=== PATIENT | male | born 1995 | race American Indian/Alaskan Native ===

== ENCOUNTER 2022-11-11 12:57 | Inpatient (IN) | payer OTHER, SELFPAY ==
[2022-11-11] VITALS (31 sets, daily range): BP systolic 107–134; BP diastolic 74–92; PULSE 65–104; RESP 11–32; TEMP 36.6–37.3; O2SAT 91–100; BMI 15.7
--- NOTE | ~2022-11-11 | XR_ITS ---
Clinical Indication: Pneumothorax PA and lateral views of the chest: Comparison: 11/13/2022 Findings: The lungs are clear, without evidence of focal consolidation or pleural effusion. Cardiome diastinal silhouette is within normal limits. Bones and soft tissues are unremarkable. Impression: No definite pneumothorax seen. Clear lungs. Reviewed, dictated and finalized at location . Impression: No definite pneumothorax seen. Clear lungs.
--- NOTE | ~2022-11-11 | XR_ITS ---
Portable chest x-ray Comparison: 11/11/2022 Clinical History: Right-sided chest pain Findings: Right-sided chest tube is in place. No definite pneumothorax identified. Lungs are clear. Cardiomediastinal silhouette is stable. Bones and soft tissues are unremarkable. Impression: Right-sided chest without definite pneumothorax. Clear lungs. Reviewed, dictated and finalized at location . Impression: Right-sided chest without definite pneumothorax. Clear lungs.
--- NOTE | ~2022-11-11 | XR_ITS ---
XR chest 2V 11/11/2022 14:49 Indication: Right-sided chest pain Procedure: 2 view chest Comparison: No prior studies for comparison. Findings: There is a moderate-large right pneumothorax. Heart size normal. No significant effusion. N o focal airspace consolidation. Impression: 1: Moderate-large right pleural effusion. Dr. Jeevan Huntley discussed with Dr. Dolores Tran PA-C at 11/11/2022 14:51 CDT. Reviewed, dictated and finalized at location A. Impression: 1: Moderate-large right pleural effusion. Dr. Jeevan Huntley discussed with Dr. Dolores Tran PA-C at 11/11/2022 14:5 1 CDT.
--- NOTE | ~2022-11-11 | XR_ITS ---
EXAMINATION: XR chest 1V portable Exam Date/Time: 11/11/2022 17:45 CDT HISTORY: chest tube placement Comparison: None available. RESULT: Lines, tubes, and devices: Right chest tube terminating in the right apex. Lungs and pleura: Clear. No pneumothorax currently seen. Cardiomediastinal silhouette: Stable. Other: No acute osseous or upper abdominal finding. IMPRESSION: Right chest tube, in good position. Improved/resolved right pneumothorax. Reviewed, dictated and finalized at location K.
--- NOTE | ~2022-11-11 | XR_ITS ---
Portable chest x-ray Comparison: 11/13/2022 at 5:20 AM Clinical History: Chest tube removal Findings: Right-sided chest tube has been removed. Suspected tiny right apical pneumothorax. Lungs a re otherwise clear. Cardiomediastinal silhouette is stable. Bones and soft tissues are unremarkable. Impression: Probable tiny right apical pneumothorax following chest tube removal. Reviewed, dictated and finalized at location . Impression: Probable tiny right apical pneumothorax following chest tube removal.
--- NOTE | ~2022-11-11 | XR_ITS ---
Portable chest x-ray Comparison: 11/12/2022 Clinical History: Right pneumothorax Findings: Right-sided chest tube has been removed. Minimal right pneumothorax present. Lungs are oth erwise clear. Cardiomediastinal silhouette is stable. Bones and soft tissues are unremarkable. Impression: Minimal right pneumothorax following right chest tube removal. Reviewed, dictated and finalized at location . Impression: Minimal right pneumothorax following right chest tube removal.
--- NOTE | 2022-11-11 14:52 | ED.URI ---
HPI - URI/Sore Throat General Chief Complaint: Upper Respiratory Infection <Dolores Tran PA-C - Last Filed: 11/11/22 18:05> Stated Complaint: Pneumonia <KEIRA Wyatt Last Filed: 11/11/22 18:05> Time Seen by Provider: 11/11/22 14:30 <Dolores Tran PA-C - Last Filed: 11/11/22 18:05> History of Present Illness HPI Narrative: 27-year-old male here for evaluation of right-sided chest pain over the past day. Patient states that he woke up with the discomfort, it is located around his right rib cage. He has had no shortness of breath, cough. He has not attempted any medicine for the pain. He has had no fevers, chills, sinus congestion. No history of trauma to the chest. <KEIRA Wyatt Last Filed: 11/11/22 18:05> Related Data Allergies/Adverse Reactions: Allergies Allergy/AdvReac Type Severity Reaction Status Date / Time No Known Allergies Allergy Verified 11/11/22 14:22 <KEIRA Wyatt Last Filed: 11/11/22 18:05> Review of Systems Review of Systems: Gen.: Denies fevers or chills Eyes: Denies eye pain or visual change ENT: Denies congestion Respiratory: Denies shortness of breath or cough CV: Reports right-sided chest pain GI: Denies abdominal pain nausea, emesis or diarrhea denies burning, urgency, frequency or hematuria Musculoskeletal: Denies back pain or muscle pain Neuro: Denies numbness, tingling, weakness or focal weakness Skin: Denies rash Except as documented, all other systems reviewed and negative <KEIAR Wyatt Last Filed: 11/11/22 18:05> Exam Narrative: APPEARANCE: Well appearing, no pain in distress, well-nourished. Head: Normocephalic and atraumatic. EYES: PERRLA/EOMI, conjunctivae clear NOSE: No nasal drainage EARS: External ear normal in appearance THROAT: Oropharynx is clear. Mucous membranes are moist. NECK: Supple. No adenopathy, no masses. RESPIRATORY: Airway patent, respirations nonlabored. Clear to auscultation bilaterally, no rales, rhonchi, wheezing. CARDIOVASCULAR: Regular rate and rhythm without murmurs, rubs, or gallops. ABDOMINAL: Normoactive bowel sounds. Soft, nontender, nondistended. No rebound tenderness or guarding. MUSCULOSKELETAL: Extremities are warm and well-perfused. Moves all extremities well. No edema. NEURO: Normal speech. No focal neurologic deficits. SKIN: Skin is warm and dry. No rashes. PSYCHIATRIC: Normal affect/mood.. <Dolores Tran PA-C - Last Filed: 11/11/22 18:05> Course ARM MAKER/PA Physician Supervision This visit was performed by both a physician and an APC. I performed all aspects of the MDM as documented. Pneumothorax requiring chest tube placement which I placed personally. No complications, adequate lung expansion, normal oxygenation. Patient has no dyspnea or pain afterwards. He received Versed 2 mg as well as fentanyl 25 mcg. General surgery admitting the patient. <Kody Santana MD - Last Filed: 11/11/22 17:54> Vital Signs Vital signs: Vital Signs Temperature 97.8 F 11/11/22 12:58 Pulse Rate 85 11/11/22 12:58 Respiratory Rate 16 11/11/22 12:58 Blood Pressure 119/83 11/11/22 12:58 Pulse Oximetry 100 11/11/22 12:58 Oxygen Delivery Room Air 11/11/22 12:58 Temperature 99.1 F 11/11/22 15:48 Pulse Rate 76 11/11/22 17:40 Respiratory Rate 16 11/11/22 17:40 Blood Pressure 122/92 H 11/11/22 17:00 Pulse Oximetry 100 11/11/22 17:40 Oxygen Delivery Nasal Cannula 11/11/22 15:29 Oxygen Flow Rate 2 11/11/22 15:29 <Dolores Tran PA-C - Last Filed: 11/11/22 18:05> Vital Signs Temperature 97.8 F 11/11/22 12:58 Pulse Rate 85 11/11/22 12:58 Respiratory Rate 16 11/11/22 12:58 Blood Pressure 119/83 11/11/22 12:58 Pulse Oximetry 100 11/11/22 12:58 Oxygen Delivery Room Air 11/11/22 12:58 Temperature 99.1 F 11/11/22 15:48 Pulse Rate 76 11/11/22 17:
[2022-11-11 14:55] LABS: Influenza A QL RT-PCR Negative (Negative); Influenza B QL RT-PCR Negative (Negative); SARS-CoV-2 RNA PCR Negative
--- NOTE | 2022-11-11 15:03 | ECG_ITS ---
Measurements Intervals [place] Rate: 64 P: 78 AL: 123 QRS: 73 QRSD: 101 T: 76 QT: 398 QTc: 411 Interpretive Statements SINUS RHYTHM INCOMPLETE RIGHT BUNDLE BRANCH BLOCK ST ELEVATION IN ANTEROLAT/INF LEADS, PROBABLY EARLY REPOLARIZATION MINIMAL Q WAVES- LATERAL LEADS BORDERLINE ECG NO PREVIOUS ECG AVAILABLE FOR COMPARISON Electronically Signed On 11-11-2022 16:33:20 CDT by Jose Abdul D.O.
--- NOTE | 2022-11-11 15:29 | PC.NURSE ---
Report given to SEAN Khanna at this time.
[2022-11-11 16:06] LABS: Basophils Percent Auto 0.5 % (0.2-1.2); Eosinophils Percent Auto 0.5 % (0-4.4); Hematocrit 45.7 % (42.0-52.0); Hemoglobin 14.8 g/dL (14.0-18.0); Immature Granulocyte Absolute 0.02 K/mm3 (0.00-0.031); Immature Granulocyte Percent A 0.3 % (0-0.5); Lymphocytes Absolute Auto 1.38 K/mm3 (0.9-3.2); Lymphocytes Percent Auto 22.7 % (18.3-44.2); Mean Corpuscular HGB Conc 32.4 g/dl (32-36); Mean Corpuscular Hemoglobin 27.5 pg (26-34); Mean Corpuscular Volume 84.8 fl (80-100); Mean Platelet Volume 10.1 fl (7.4-10.4); Monocytes Absolute Auto 0.4 K/mm3 (0.1-0.6); Monocytes Percent Auto 6.4 % (2.6-8.5); Neutrophils Absolute Auto 4.2 K/mm3 (1.3-6.7); Neutrophils Percent Auto 69.6 % (45.5-73.1); Platelet Count Result 281 k/mm3 (150-375); Red Blood Count 5.39 M/mm3 (4.6-6.20); Red Cell Distribution Width 13.1 % (11.5-14.5); White Blood Count 6.1 K/mm3 (4.5-10.0)
[2022-11-11 16:17] LABS: Alanine Aminotransferase 20 U/L (6-50); Albumin Level 4.9 g/dL (3.5-5.1); Alkaline Phosphatase 71 U/L (38-126); Anion Gap 7 mmol/L (8-16); Aspartate Amino Transferase 29 U/L (17-59); Bilirubin,Total 0.5 mg/dL (0.2-1.3); Blood Urea Nitrogen 9 mg/dL (9-20); Calcium 9.8 mg/dL (8.4-10.2); Carbon Dioxide 29 mmol/L (22-30); Chloride 103 mmol/L (98-107); Estimated CRCL calculation 125 ml/min; Estimated Glomerular Filt Rate > 60; Glucose 92 mg/dL (65-110); Potassium 4.1 mmol/L (3.4-5.0); Sodium 139 mmol/L (137-145)
[2022-11-11] MEDS: fentaNYL CITRATE INJ (*CRX) 100 MCG/2 ML VIAL 25 MCG IV PUSH (17:14)
--- NOTE | 2022-11-11 17:16 | PC.NURSE ---
and PA at bedside for procedure
--- NOTE | 2022-11-11 17:20 | PC.NURSE ---
Verbal consent obtained earlier by MD. Signed consent completed at bedside.
[2022-11-11] MEDS: MIDAZOLAM HCL (*CRX) 2 MG/2 ML VIAL IV PUSH (17:30)
--- NOTE | 2022-11-11 17:31 | PC.NURSE ---
2 versed administered at 1730
[2022-11-11] MEDS: MORPHINE SULFATE (*CRX) 4 MG/ML INJ IV PUSH ×2 (18:44→22:22)
--- NOTE | 2022-11-11 18:55 | PC.NURSE ---
Report called to Julianne on Med/Surg
--- NOTE | 2022-11-11 19:42 | ADMGEN ---
This patient, Elana Serrano, was admitted to Medical Room 259-01. Patient/family oriented to hospital policies and general routines including ID bracelet, bed and alarms, visiting hours, pain management, procedures, bathroom and other care routines, personal items, smoking policy, room service/diet, and visiting hours. Information on how to activate the Rapid Response Team has been discussed. Patient/Family are encouraged to report perceived risks to care and to ask questions if they do not understand what they are told or what they should do.
[2022-11-11] MEDS: HYDROcodone/acetaminophen (*CRX) 5-325 MG TABLET 1 TAB PO (19:55)
[2022-11-12] MEDS: MORPHINE SULFATE (*CRX) 4 MG/ML INJ IV PUSH ×2 (03:12→06:13)
[2022-11-12 04:06] VITALS: BP 104/70; PULSE 69; RESP 18; TEMP 36.5; O2SAT 100
[2022-11-12] MEDS: HYDROcodone/acetaminophen (*CRX) 5-325 MG TABLET 1 TAB PO ×4 (04:22→21:32)
[2022-11-12 08:00] VITALS: O2SAT 99
--- NOTE | 2022-11-12 11:19 | PM.IMHP ---
H&P: HPI History of Present Illness Date/Time: 11/12/22 11:19 Chief Complaint: Right-sided chest pain Narrative: This is a 27-year-old otherwise healthy male who presented to the ER yesterday with complaints of right-sided chest pain. He reportedly woke up with a mild burning chest discomfort yesterday morning. He denies shortness of breath, cough, recent respiratory infection, or any other associated symptoms. He denies ever having this pain in the past and decided to come into the ER for evaluation. Chest x-ray in the ER showed a moderate to large right pneumothorax. Vital signs were stable. Labs were unremarkable. A right-sided chest tube was placed by the ER provider. Postplacement chest x-ray showed nearly full expansion of the right lung with the chest tube in good position. Our service was contacted and he was admitted in this setting. The patient is now seen on the medical floor this morning. His chest tube has been on water seal overnight. He reports the right-sided chest discomfort has improved since yesterday and now he primarily has pain at the chest tube insertion site. He denies a history of a pneumothorax. He does report smoking marijuana daily, frequently. He denies recent trauma to the chest or any recent falls. Review of Systems Review of Systems: All systems reviewed & are unremarkable except as noted in HPI and below PMFSH Past Medical History Medical History No pertinent past medical history Surgical History Surgical History No significant past surgical history Family History Family History Father Hypertension Mother Hypertension Social History Social History Smoking status: Never smoker Alcohol intake: never Substance use: current Substance use type: marijuana Lack of Transportation: No Lack of Food: Never True Current Housing: I Have Housing Concerned About Future Housing: No Difficulty Paying Gas/Electric Bills: No Difficulty Paying for Meds: No Currently Unemployed: No Education: Associate Degree Difficulty w/ Childcare or Family Care: No Spiritual care concerns: No Meds Home Medications and Allergies Home Medications Medication Instructions Recorded Confirmed Type No Home Medications 11/11/22 11/11/22 History Allergies Allergy/AdvReac Type Severity Reaction Status Date / Time No Known Allergies Allergy Verified 11/11/22 14:22 Vital Signs Vital Signs - 24 hr 11/11/22 12:58 11/11/22 14:25 11/11/22 15:29 Temperature 97.8 F Pulse Rate 85 77 Respiratory Rate 16 Blood Pressure 119/83 Pulse Oximetry 100 Oxygen Delivery Room Air Room Air Oxygen Flow Rate 11/11/22 15:29 11/11/22 15:45 11/11/22 15:48 Temperature 99.1 F Pulse Rate 67 Respiratory Rate 19 Blood Pressure 120/80 Pulse Oximetry 100 100 Oxygen Delivery Nasal Cannula Oxygen Flow Rate 2 11/11/22 16:06 11/11/22 16:25 11/11/22 16:30 Temperature Pulse Rate 67 78 77 Respiratory Rate 18 11 L 14 Blood Pressure Pulse Oximetry 100 100 91 Oxygen Delivery Oxygen Flow Rate 11/11/22 16:45 11/11/22 17:00 11/11/22 17:34 Temperature Pulse Rate 82 65 104 H Respiratory Rate 15 17 27 H Blood Pressure 122/92 H Pulse Oximetry 100 100 100 Oxygen Delivery Oxygen Flow Rate 11/11/22 17:35 11/11/22 17:37 11/11/22 17:40 Temperature Pulse Rate 97 75 76 Respiratory Rate 32 H 30 H 16 Blood Pressure Pulse Oximetry 100 100 100 Oxygen Delivery Oxygen Flow Rate 11/11/22 17:21 11/11/22 17:37 11/11/22 17:46 Temperature Pulse Rate 79 73 68 Respiratory Rate 17 15 18 Blood Pressure 107/81 Pulse Oximetry 100 100 100 Oxygen Delivery Oxygen Flow Rate 11/11/22 17:47 11/11/22
[2022-11-12 13:36] VITALS: BP 124/81; PULSE 90; RESP 16; TEMP 36.1; O2SAT 100
[2022-11-12 13:52] VITALS: O2SAT 99
[2022-11-12 19:31] VITALS: BP 110/77; PULSE 55; RESP 18; TEMP 36.1; O2SAT 98
[2022-11-12 20:00] VITALS: O2SAT 98
[2022-11-13] MEDS: MORPHINE SULFATE (*CRX) 2 MG/ML INJ IV PUSH (00:32)
--- NOTE | 2022-11-13 02:05 | PC.NURSE ---
PT REFUSING TO MOVE. PT WILL NOT LIFT HIS OWN HEAD OR REACH FOR ANYTHING ON HIS BEDSIDE TABLE OTHER THAN HIS PHONE. PT FREQUENTLY REQUESTING TO BE REPOSITIONED IN BED BUT SCREAMS IN PAIN WHEN YOU MOVE HIM IN THE SLIGHTEST. I RECOMMENDED THE PT STAND AT THE BEDSIDE AND TAKE A FEW SMALL STEPS TOWARDS THE TOP OF THE BED AND SIT DOWN AGAIN TO GET HIGHER IN THE BED RATHER THAN US PULLING HIM UP BUT HE REFUSED STATING I CAN'T . PT IS NOT ATTEMPTING TO MOVE OR DO THINGS FOR HIMSELF THAT HE WILL HAVE TO DO ONCE DISCHARGED. I ENCOURAGED INCENTIVE SPIROMETER USE AND PT AMBULATION TO PROMOTE HEALING.
[2022-11-13] MEDS: MORPHINE SULFATE (*CRX) 4 MG/ML INJ IV PUSH ×2 (02:23→08:53)
[2022-11-13 03:44] VITALS: BP 110/77; PULSE 84; RESP 17; TEMP 36.3; O2SAT 100
[2022-11-13] MEDS: HYDROcodone/acetaminophen (*CRX) 5-325 MG TABLET 1 TAB PO (05:31)
[2022-11-13 08:00] VITALS: O2SAT 100
[2022-11-13 08:55] VITALS: O2SAT 96
--- NOTE | 2022-11-13 10:55 | PM.PNGS ---
Progress Note: A&P Assessment and Plan (1) Pneumothorax: Code(s): J93.9 - Pneumothorax, unspecified Status: Acute Assessment and Plan: Chest x-ray this morning on water seal showed a tiny right pneumothorax, chest tube still in good position. No pleural leak again today. Chest tube was removed. Will repeat a chest x-ray 2 hours after removal. Plan I have discussed the patient's case and plan of care with Dr. Larios. Subjective Subjective Date/Time Seen: 11/13/22 10:00 Patient reports: no new complaints, feels better and pain is less Interval history: Patient seen this morning. Still having some pain at the chest tube insertion site, but his right-sided burn chest pain continues to improve. He denies any shortness of breath or acute issues overnight. He is currently on room air with stable oxygen saturations. No other complaints at this time. No pleural leak noted this morning. Review of Systems Review of Systems: ROS unchanged Exam Const: General: comfortable and no acute distress Nutritional Appearance: thin Orientation/consciousness: patient oriented x3 Chest: Chest palpation & inspection: no crepitus Other: Right lateral chest tube with dressing dry and intact, on water seal, no air leak. Dressing and suture removed, then chest tube was removed while applying an occlusive gauze dressing to the right lateral chest. Patient tolerated this well. Resp: Effort & Inspection: no respiratory distress Auscultation: clear to auscultation bilaterally Cardio: Rate: regular rate Rhythm: regular rhythm Objective Data Vital Signs Vital Signs: Vital Signs - 24 hr 11/12/22 13:36 11/12/22 13:52 11/12/22 19:31 Temperature 96.9 F L 96.9 F L Pulse Rate 90 55 L Respiratory Rate 16 18 Blood Pressure 124/81 110/77 Pulse Oximetry 100 99 98 Oxygen Delivery Nasal Cannula Oxygen Flow Rate 2 Fraction of Inspired Oxygen 28 11/12/22 20:00 11/13/22 03:44 11/13/22 08:00 Temperature 97.4 F L Pulse Rate 84 Respiratory Rate 17 Blood Pressure 110/77 Pulse Oximetry 98 100 100 Oxygen Delivery Nasal Cannula Nasal Cannula Oxygen Flow Rate 2 2 Fraction of Inspired Oxygen 11/13/22 08:55 Temperature Pulse Rate Respiratory Rate Blood Pressure Pulse Oximetry 96 Oxygen Delivery Room Air Oxygen Flow Rate Fraction of Inspired Oxygen 21 Intake/Output Intake/Output: Intake & Output 11/10/22 11/11/22 11/12/22 11/13/22 23:59 23:59 23:59 23:59 Intake Total 1150 240 Output Total 850 200 Balance 300 40 Meds/Results Medications: Active Medications Generic Name Dose Route Start Last Admin Trade Name Freq PRN Reason Stop Dose Admin Hydrocodone Bitart/Acetaminophen 1 tab 11/11/22 17:49 11/13/22 05:31 Hydrocodone/Acetaminophen (*Crx) 5-325 Mg Tablet PO 1 tab Q4H PRN Administration Pain Rated 4-6 Morphine Sulfate 2 mg 11/11/22 22:04 11/13/22 00:32 Morphine Sulfate (*Crx) 2 Mg/Ml Inj IV PUSH 2 mg Q2H PRN Administration Breakthrough Pain Morphine Sulfate 4 mg 11/11/22 22:04 11/13/22 08:53 Morphine Sulfate (*Crx) 4 Mg/Ml Inj IV PUSH 4 mg Q2H PRN Administration Pain Rated 7-10 Ondansetron HCl 4 mg 11/11/22 17:49 Ondansetron Inj 4 Mg/2 Ml Vial IV PUSH Q4H PRN Nausea Radiology Results: ITS Impressions Chest X-Ray 11/13/22 05:58 Impression: Minimal right pneumothorax following right chest tube removal. ADDENDUM: 11/13/22 0721 There is in fact probably a right chest tube present, which is not as well-seen as on the prior exam, but without significant change in position.
[2022-11-13 12:08] VITALS: BMI 15.7
--- NOTE | 2022-11-13 12:52 | P.CDI_ITS ---
CDI Query Clarified Diagnosis Clarified Diagnosis: BMI 15.7 Nutritional Diagnostic Statement Moderate protein calorie malnutrition as related to increased protein needs in the setting of acute disease (pneumothorax) as evidence by significant weight loss of 6% in 1 week ( 8 lbs); mild subcutaneous fat loss (orbital fat pads) and mild muscle wasting (temporalis). Please refer to the Comprehensive Nutrition Assessment for more information. Please clarify severity of protein calorie malnutrition: * Mild * Moderate * Severe * Other/ Unspecified <Almaz Valenzuela RN - Last Filed: 11/13/22 12:59> Provider Comments Patient has moderate protein calorie malnutrition <Mat Larios DO - Last Filed: 11/14/22 11:35>
[2022-11-13 14:00] VITALS: BP 109/70; PULSE 84; RESP 16; TEMP 36.9; O2SAT 100
--- NOTE | 2022-11-13 15:49 | PCCCNOTE ---
On 11/13/22, the student, [Hilda Miller], provided care and completed [facility] documentation on this patient. I have reviewed the student's documentation and agree with the findings.
[2022-11-13] MEDS: IBUPROFEN 600 MG TABLET PO ×2 (17:00→21:17)
--- NOTE | 2022-11-13 19:14 | PHAR ---
PT'S HOME MED ESTRADIOL 2 MG TABS VERIFIED BY PHARMACY
[2022-11-13 22:34] VITALS: BP 114/76; PULSE 95; RESP 16; TEMP 37.1; O2SAT 100
[2022-11-14] MEDS: IBUPROFEN 600 MG TABLET PO (04:23)
[2022-11-14 06:59] VITALS: BP 114/76; PULSE 72; RESP 16; TEMP 36.7; O2SAT 100
[2022-11-14 08:00] VITALS: O2SAT 100
[2022-11-14] MEDS: LIDOCAINE 5% PATCH 1 PATCH TRANSDERM (08:50)
--- NOTE | 2022-11-14 11:35 | PM.DS ---
DS: Admitting Diagnosis Discharge Date 11/14/2022 Admitting Diagnosis right spontaneous pneumothorax DS: Discharge Diagnosis Discharge Diagnosis (1) Pneumothorax: Code(s): J93.9 - Pneumothorax, unspecified Status: Acute (2) Marijuana smoker: Code(s): F12.90 - Cannabis use, unspecified, uncomplicated Status: Acute (3) Moderate protein-calorie malnutrition: Code(s): E44.0 - Moderate protein-calorie malnutrition Status: Acute DS: Summary Hospital Course Reason for hospitalization: right pneumothorax Hospital Course: this is a 27-year-old man who presented to the emergency department with right-sided chest pain. He was hemodynamically stable and had normal oxygen saturation on room air. He had had x-ray which showed evidence of a moderate to large right pneumothorax. Chest tube was placed by the ED physician and he was admitted for further treatment. The follow-up chest x-ray showed complete re-expansion of the lung. The chest tube was monitored with the Pleur-evac to water-seal. There was no evidence of air leak and he remained hemodynamically stable. Most of his complaints were around his pain from the chest tube insertion. Pain control was aided with oral and IV pain medications. On 11/13/2022, the pneumothorax appeared resolved except for a tiny apical pneumothorax. Chest tube was removed and follow-up x-ray showed stable appearance. He was still experiencing a lot of pain at the chest tube site once it was removed, therefore he was kept in the hospital 1 more night. On 11/14 the follow-up chest x-ray showed no pneumothorax and his pain was improving. He was tolerating the pain with just oral ibuprofen. He remained hemodynamically stable. He was discharged on 11/14/2022. Time spent discussing smoking cessation with patient: 3 to 10 minutes Status at Discharge Functional status at discharge: independent ambulation Overall status at discharge: patient is progressing back to baseline Time Spent with Patient Time attestation: Total time spent providing and/or coordinating discharge services: Time spent: Less than 30 minutes Exam Const: General: comfortable, no acute distress and malnourished Resp: Effort & Inspection: normal respiratory effort Auscultation: clear to auscultation bilaterally Cardio: Rate: regular rate Rhythm: regular rhythm Heart sounds: S1 normal heart sound present and S2 normal heart sound present DS: Data Imaging Radiologist's impression: Impressions Chest X-Ray 11/13/22 12:32 Impression: Probable tiny right apical pneumothorax following chest tube removal. Chest X-Ray 11/14/22 10:42 Impression: No definite pneumothorax seen. Clear lungs. Discharge Plan Discharge Attending physician on discharge: Mat Larios Consulting providers: Dolores Tran Discharging Clinician: Mat Larios Patient Disposition: Home, Self-Care Activity: may shower and other - see discharge instructions Diet: regular Wound Care Instructions: other - see discharge instructions Discharge Instructions: Post chest tube removal instructions remove bandage at chest tube site on 11/15 no strenuous activity or lifting greater than 20 lb for the next 2 weeks, then may resume regular activity without restrictions take [id number] ibuprofen or Tylenol as needed for pain return to the emergency department for recurrent chest pain or shortness of breath follow-up with primary care physician for routine care Patient Instructions: Antibiotic Form Stand Alone Forms: General Discharge Information Follow-up/Referrals: Cristopher,Ulises Bocanegra MD [Primary Care Provider] - Follow Up with Primary Dr Discharge Medications: Continued No Home Medications Date of admission: 11/12/22 09:59 Primary Care Provider: CristopherUlises Admitting Provider: Mat Larios Attending physician on admis
--- NOTE | 2022-11-14 12:45 | PCCCNOTE ---
On 11/14/22, the student, [Aurora Miller], provided care and completed [facility] documentation on this patient. I have reviewed the student's documentation and agree with the findings.
[2022-11-14 13:45] VITALS: BP 108/73; PULSE 60; RESP 13; TEMP 36.7; O2SAT 95
== END 2022-11-14 13:59 | disposition home or self-care (01) | DRG 200 ==
LOC: ANHED 15:53 → ANH2MED 18:34
PROVIDERS: General Practice; Admitting Provider Surgery; Emergency Provider Physician Assistant; PCP Family Medicine; Visit Provider Surgery
DX: J93.9 Pneumothorax, unspecified (principal); E44.0 Moderate protein-calorie malnutrition; Z68.1 Body mass index [BMI] 19.9 or less, adult; Z20.822 Contact with and (suspected) exposure to COVID-19; F12.90 Cannabis use, unspecified, uncomplicated
CPT/HCPCS: 32556; 36415; 71045; 71046; 80053; 85025; 87636; 93005; 96374; 96375; 96376; 99285; A9270; C1729; G0378; J2250; J2270; J3010

== ENCOUNTER 2023-11-15 12:42 | Emergency (ER) | payer OTHER, SELFPAY ==
--- NOTE | ~2023-11-15 | CT_ITS ---
EXAMINATION: CT abdomen pelvis w con DATE: 11/15/2023 14:37 INDICATION: abd pain TECHNIQUE: Computed tomography (CT) of the abdomen and pelvis was performed with 100 mL Omnipaque-350 intravenous contrast. Automated exposure control and iterative reconstruction technique were employe d. The dose-length product was 189.37 mGy-cm. COMPARISON: None. FINDINGS: Lower thorax: Unremarkable Liver: Normal. Biliary/Gallbladder: Gallbladder is normal. No bile duct dilation. Pancreas: No mass or duct dilation. Spleen: Normal. Adrenals:No mass. Kidneys: No suspicious mass, obstructing stone, or hydronephrosis. GI tract: Moderate distal esophageal and gastric wall edema. No small or large bowel dilation. Append ix not visualized. Mesentery/Peritoneum: No ascites, mass, or free air. Retroperitoneum: No mass. Pelvis: Pelvic organs are within normal limits. Soft Tissues: Soft tissues and body wall unremarkable. Bones: No acute osseous finding. IMPRESSION: Moderate esophagitis/gastritis. No other acute abdominopelvic process detected. Reviewed, dictated and finalized at location K.
[2023-11-15 12:46] VITALS: BP 126/86; PULSE 118; RESP 14; TEMP 36.6; O2SAT 100
--- NOTE | 2023-11-15 13:00 | ED.ABDPAIN ---
HPI - Abdominal Pain General Chief Complaint: Abdominal Pain Stated Complaint: decreased appetite Time Seen by Provider: 11/15/23 13:00 Source: patient and family Mode of arrival: ambulatory Limitations: no limitations History of Present Illness HPI narrative: 28 years old male came to the emergency room by private car with his mom complaining of mild abdominal butterfly like feeling started 3 days ago, 5 hour after eating possible bad food associated with nausea, he denies any fever, chills, vomiting, diarrhea. Patient report poor appetite over the last 3 days, stomach upset when he eat anything. The patient is healthy otherwise, does not smoke or drink, uses marijuana daily not today. Related Data Allergies Allergy/AdvReac Type Severity Reaction Status Date / Time No Known Allergies Allergy Verified 11/11/22 14:22 Review of Systems Review of Systems: All systems reviewed & are unremarkable except as noted in HPI and below PMFSH Past Medical History Medical History No pertinent past medical history Surgical History Surgical History No significant past surgical history Family History Family History Father Hypertension Mother Hypertension Social History Social History Smoking status: Never smoker Alcohol intake: never Substance use: current Substance use type: marijuana Lack of Transportation: No Lack of Food: Never True Current Housing: I Have Housing Concerned About Future Housing: No Difficulty Paying Gas/Electric Bills: No Difficulty Paying for Meds: No Currently Unemployed: No Education: Associate Degree Difficulty w/ Childcare or Family Care: No Spiritual care concerns: No Exam Narrative: General appearance: Well-developed, well-nourished Skin: Normal color Head: Normocephalic, nontraumatic Eyes: Clear conjunctiva ENT: Oropharynx normal, ears normal, nose normal Neck: Supple, nontender Chest and respiratory: Airway patent, no respiratory distress, no accessory muscle use Heart: Regular rate/rhythm Abdomen: Soft, nontender, no organomegaly, quiet bowel sounds Vascular: Normal peripheral pulses, normal capillary refill. Musculoskeletal: Normal range of motion, nontender back Neurologic: Alert and oriented ?3, [employer] is normal as tested, no gross motor deficit Course Vital Signs Vital signs: Vital Signs Temperature 36.6 C 11/15/23 12:46 Pulse Rate 118 H 11/15/23 12:46 Respiratory Rate 14 11/15/23 12:46 Blood Pressure 126/86 11/15/23 12:46 Pulse Oximetry 100 11/15/23 12:46 Oxygen Delivery Room Air 11/15/23 12:46 Temperature 36.6 C 11/15/23 12:46 Pulse Rate 118 H 11/15/23 12:46 Respiratory Rate 14 11/15/23 12:46 Blood Pressure 126/86 11/15/23 12:46 Pulse Oximetry 100 11/15/23 12:46 Oxygen Delivery Room Air 11/15/23 12:46 MDM - Abdominal Pain MDM Narrative Medical decision making narrative: Patient presents with abdominal pain after eating possible bad food, Differential diagnosis food poisoning, viral gastroenteritis, gastritis, pancreatitis, colitis Blood workup today showed no acute abnormalities, CT abdomen and pelvis with IV contrast showed esophagitis, gastritis Patient reports that his symptoms are improving, came to the emergency room today to make sure nothing serious. The plan to discharge patient on Zofran and Protonix and clear liquid diet for 3 days. Differential Diagnosis Differential diagnosis: Likel
[2023-11-15 13:31] LABS: Basophils Percent Auto 0.8 % (0.2-1.2); Eosinophils Absolute Auto 0.1 K/mm3 (0-0.3); Eosinophils Percent Auto 1.3 % (0-4.4); Hematocrit 45.2 % (42.0-52.0); Hemoglobin 14.4 g/dL (14.0-18.0); Immature Granulocyte Absolute 0.01 K/mm3 (0.00-0.031); Immature Granulocyte Percent A 0.3 % (0-0.5); Lymphocytes Absolute Auto 1.43 K/mm3 (0.9-3.2); Mean Corpuscular HGB Conc 31.9 g/dl (32-36); Mean Corpuscular Hemoglobin 26.8 pg (26-34); Mean Platelet Volume 10.1 fl (7.4-10.4); Monocytes Absolute Auto 0.3 K/mm3 (0.1-0.6); Monocytes Percent Auto 7.8 % (2.6-8.5); Neutrophils Absolute Auto 2.1 K/mm3 (1.3-6.7); Neutrophils Percent Auto 52.8 % (45.5-73.1); Platelet Count Result 271 k/mm3 (150-375); Red Blood Count 5.38 M/mm3 (4.6-6.20); Red Cell Distribution Width 12.4 % (11.5-14.5); White Blood Count 3.9 K/mm3 (4.5-10.0)
[2023-11-15 13:47] LABS: Alanine Aminotransferase 14 U/L (6-50); Albumin Level 4.6 g/dL (3.5-5.1); Alkaline Phosphatase 56 U/L (38-126); Anion Gap 10 mmol/L (8-16); Aspartate Amino Transferase 21 U/L (17-59); Bilirubin,Total 0.8 mg/dL (0.2-1.3); Blood Urea Nitrogen 9 mg/dL (9-20); Carbon Dioxide 23 mmol/L (22-30); Chloride 105 mmol/L (98-107); Estimated CRCL calculation 129 ml/min; Estimated Glomerular Filt Rate > 60; Glucose 99 mg/dL (65-110); Lipase 29 U/L (23-300); Potassium 3.9 mmol/L (3.4-5.0); Sodium 138 mmol/L (137-145)
[2023-11-15] MEDS: SODIUM CHLORIDE 0.9% IV 1,000 ML 999 ML IV CONT (13:51)
[2023-11-15 15:13] LABS: Add Urine Microscopic? NO
[2023-11-15 15:14] LABS: Appearance Urine Clear (Clear); Bilirubin Urine Negative (Negative); Blood Urine Negative (Negative); Color Urine Yellow (Yellow); Glucose Urine UA Negative (Negative); Ketones Urine 2+ mg/dL (Negative); Leukocyte Esterase Ur Negative LEU/UL (Negative); Nitrate Urine Negative (Negative); Protein Urine Negative (Negative); Specific Grav Ur 1.015 (1.001-1.035); Urobilinogen Urine 0.2 mg/dL (<2.0); pH Urine 7.5 (5.0-9.0)
[2023-11-15 15:50] VITALS: BP 108/79; PULSE 94; RESP 16; O2SAT 100
== END 2023-11-15 15:50 | disposition home or self-care (01) ==
PROVIDERS: Emergency Provider Emergency Medicine; PCP Family Medicine
DX: K29.70 Gastritis, unspecified, without bleeding (principal)
CPT/HCPCS: 36415; 74177; 80053; 81003; 83690; 85025; 96360; 99284; J7030; Q9967

== ENCOUNTER 2023-11-16 12:05 | Emergency (ER) | payer OTHER, SELFPAY ==
[2023-11-16 12:06] VITALS: BP 117/89; PULSE 104; RESP 20; TEMP 36.8; O2SAT 100
[2023-11-16 12:26] VITALS: RESP 20; O2SAT 97
--- NOTE | 2023-11-16 12:59 | ED.GENADULT ---
HPI - General Adult General Chief complaint: Unspecified Stated complaint: financial issues Time Seen by Provider: 11/16/23 12:14 History of Present Illness HPI narrative: 28-year-old male present to the emergency department for evaluation malnutrition. Patient states he has had couple days of nausea and vomiting. Patient was evaluated emergency department yesterday and had a negative workup. CT scan did show esophagitis gastritis. Patient felt improved in the emergency department. Patient states that he was unable to take care for self yesterday because his mother usually helps some has Parkinson's and she was unable to go to the store to buy him additional food. Related Data Allergies Allergy/AdvReac Type Severity Reaction Status Date / Time No Known Allergies Allergy Verified 11/11/22 14:22 Review of Systems Review of Systems: All systems reviewed & are unremarkable except as noted in HPI and below PMFSH Past Medical History Medical History No pertinent past medical history Surgical History Surgical History No significant past surgical history Family History Family History Father Hypertension Mother Hypertension Social History Social History Smoking status: Never smoker Alcohol intake: never Substance use: current Substance use type: marijuana Lack of Transportation: No Lack of Food: Never True Current Housing: I Have Housing Concerned About Future Housing: No Difficulty Paying Gas/Electric Bills: No Difficulty Paying for Meds: No Currently Unemployed: No Education: Associate Degree Difficulty w/ Childcare or Family Care: No Spiritual care concerns: No Exam Narrative: APPEARANCE: Well appearing, no pain, no distress, well-nourished. HEAD: normocephalic, atraumatic. EYES: PERRLA/EOMI, conjunctivae clear. NOSE: Normal no drainage NECK: Supple. No adenopathy, no masses. RESPIRATORY: Airway patent, respirations nonlabored. Clear to auscultation bilaterally, no rales, rhonchi, wheezing. CARDIOVASCULAR: Regular rate and rhythm without murmurs rubs or gallops. ABDOMINAL: Soft, nontender, nondistended, normal bowel sounds MUSCULOSKELETAL: Moves all extremities. Strength/ROM intact, No edema, No calf tenderness. NEURO: Alert. Cranial nerves II through XII intact. Grossly intact SKIN: Warm, dry. Normal Color Course Course Emergency Course: Patient felt improved and was discharged home Vital Signs Vital signs: Vital Signs Temperature 98.2 F 11/16/23 12:06 Pulse Rate 104 H 11/16/23 12:06 Respiratory Rate 20 11/16/23 12:06 Blood Pressure 117/89 11/16/23 12:06 Pulse Oximetry 100 11/16/23 12:06 Oxygen Delivery Room Air 11/16/23 12:06 Temperature 98.2 F 11/16/23 12:06 Pulse Rate 76 11/16/23 14:37 Respiratory Rate 18 11/16/23 14:37 Blood Pressure 119/76 11/16/23 14:37 Pulse Oximetry 100 11/16/23 14:37 Oxygen Delivery Room Air 11/16/23 12:06 Medical Decision Making MDM Narrative Medical decision making narrative: 28-year-old male presents to the emergency department for evaluation malnutrition. Patient is afebrile with no leukocytosis and a stable hemoglobin. No acute abnormalities on the patient's CMP and negative lipase. Patient has a negative lactic acid. Patient was treated with IV fluids and does feel improved. Patient was tolerating liquid diet. Patient was advised to continue his full liquid diet for the next few days. Differential diagnosis does include gastritis and esophagitis and dehydration. Differential Diagnosis Differential Diagnosis: Dehydration, nausea, gastritis, decreased p.o. intake Vital Signs Vital Signs: Vital Signs Temperature 98.2 F 11/16/23 12:06 Pulse Rate 104 H 11/16/23 12
[2023-11-16] MEDS: PANTOPRAZOLE SODIUM IV 40 MG VIAL IV PUSH (13:15)
[2023-11-16] MEDS: SODIUM CHLORIDE 0.9% IV 1,000 ML 999 ML IV CONT (13:15)
[2023-11-16] MEDS: ONDANSETRON INJ 4 MG/2 ML VIAL IV PUSH (13:15)
--- NOTE | 2023-11-16 13:21 | PCCCNOTE ---
CC called to the ED to bring pt resources for food pantry's. Pt was given the packet, verbalized no other resources needed at this time.
[2023-11-16 13:24] LABS: Basophils Percent Auto 0.4 % (0.2-1.2); Eosinophils Percent Auto 0.4 % (0-4.4); Hematocrit 44.9 % (42.0-52.0); Hemoglobin 14.3 g/dL (14.0-18.0); Immature Granulocyte Absolute 0.01 K/mm3 (0.00-0.031); Immature Granulocyte Percent A 0.2 % (0-0.5); Lymphocytes Percent Auto 28.7 % (18.3-44.2); Mean Corpuscular HGB Conc 31.8 g/dl (32-36); Mean Corpuscular Hemoglobin 26.8 pg (26-34); Mean Corpuscular Volume 84.2 fl (80-100); Mean Platelet Volume 10.3 fl (7.4-10.4); Monocytes Absolute Auto 0.3 K/mm3 (0.1-0.6); Monocytes Percent Auto 7.5 % (2.6-8.5); Neutrophils Absolute Auto 2.8 K/mm3 (1.3-6.7); Neutrophils Percent Auto 62.8 % (45.5-73.1); Platelet Count Result 251 k/mm3 (150-375); Red Blood Count 5.33 M/mm3 (4.6-6.20); Red Cell Distribution Width 12.8 % (11.5-14.5); White Blood Count 4.5 K/mm3 (4.5-10.0)
[2023-11-16 13:31] LABS: Alanine Aminotransferase 15 U/L (6-50); Albumin Level 4.6 g/dL (3.5-5.1); Alkaline Phosphatase 60 U/L (38-126); Anion Gap 7 mmol/L (8-16); Aspartate Amino Transferase 21 U/L (17-59); Bilirubin,Total 0.7 mg/dL (0.2-1.3); Blood Urea Nitrogen 9 mg/dL (9-20); Calcium 9.5 mg/dL (8.4-10.2); Carbon Dioxide 25 mmol/L (22-30); Chloride 105 mmol/L (98-107); Estimated CRCL calculation 112 ml/min; Estimated Glomerular Filt Rate > 60; Glucose 82 mg/dL (65-110); Lipase 29 U/L (23-300); Potassium 3.7 mmol/L (3.4-5.0); Sodium 137 mmol/L (137-145)
[2023-11-16 13:32] LABS: Lactic Acid Reflex 1.1 mmol/L (0.7-2.0)
[2023-11-16 14:37] VITALS: BP 119/76; PULSE 76; RESP 18; O2SAT 100
== END 2023-11-16 14:56 | disposition home or self-care (01) ==
PROVIDERS: Emergency Provider Emergency Medicine; PCP Family Medicine
DX: E86.0 Dehydration (principal); K29.70 Gastritis, unspecified, without bleeding
CPT/HCPCS: 36415; 80053; 83605; 83690; 85025; 96361; 96374; 96375; 99284; C9113; J2405; J7030